=== PATIENT | male | born 1995 | race Hispanic/Latino ===

== ENCOUNTER → 2019-08-11 | Outpatient (CLI) | payer OTHER ==
--- NOTE | 2019-08-11 22:45 | NUR ---
PATIENT EXPERIENCING PAIN RIGHT NOW. MARKED 5.5 PAIN LEVEL, ON PAIN SCALE 0 NO PAIN TO 10 WORSE POSSIBLE PAIN. Addendum: 08/11/19 at 2252 by JEWEL [facility] Amended: Links added.
== END | disposition home or self-care (01) ==
LOC: SLP 20:49
PROVIDERS: ATTEND Orthopaedic Surgery
DX: G47.33 Obstructive sleep apnea (adult) (pediatric) (principal)
CPT/HCPCS: 95810